=== PATIENT | male | born 1960 | race Caucasian/White ===

== ENCOUNTER 2017-02-04 11:54 | Day surgery (SDC) | payer BC ==
[~2017-02-04 11:54] MED LIST: Lactated Ringers 1,000 ML IV SCH; Midazolam 1 MG/ML 2 ML SDV ONE; Propofol 200 MG/20 ML SDV ONE; fentaNYL 100 MCG/2 ML SDV ONE
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
[2017-02-04] MEDS ORDERED: Lactated Ringers 1,000 ML IV SCH (14:45)
--- NOTE | 2017-02-04 14:45 | PCM.OPNOTE ---
- General Post-Op/Procedure Note Date of Surgery/Procedure: 02/04/17 Operative Procedure(s): Colonoscopy with cold rectal polypectomy Pre Op Diagnosis: Family history of colon cancer. Family history of colon polyps. Desire for colorectal cancer screening. Post-Op Diagnosis: Rectal polyp Anesthesia Technique: MAC (ASA I) Primary Surgeon: Jose Otero Condition: Good Free Text/Narrative:: Dictation [id number]
--- NOTE | 2017-02-04 14:58 | PCM.POSTAN ---
POST ANESTHESIA ASSESSMENT - MENTAL STATUS Mental Status: alert, oriented - RESPIRATORY Respiratory Status: respiratory rate WNL, airway patent, O2 saturation stable - CARDIOVASCULAR CV Status: pulse rate WNL, blood pressure stable - GASTROINTESTINAL GI Status: no symptoms - POST OP HYDRATION Hydration Status: adequate & stable - OBSERVATIONS Free Text/Narrative:: no anesthesia problems
--- NOTE | 2017-02-04 15:02 | OR ---
SURGEON: Jose Otero M.D. DATE OF PROCEDURE: 02/04/2017 OPERATION PERFORMED: Colonoscopy with cold rectal polypectomy. ANESTHESIA: MAC. ASA CLASSIFICATION: II PREOPERATIVE DIAGNOSES: 1. Family history of colon cancer. 2. Family history of colon polyps. 3. Desire for colorectal cancer screening. DESCRIPTION OF PROCEDURE: The patient was taken to the endoscopy room and positioned on the endoscopy table in the left lateral decubitus position. Time-out was called for appropriate identification of the patient and procedure. Monitored anesthesia care was provided. The colonoscope was inserted into the rectum and advanced with moderate difficulty to the cecum where the colonoscope was retroflexed to visualize the ascending colon from below. The colonoscope was then straightened and slowly withdrawn. The cecum, ascending colon, hepatic flexure, transverse colon, splenic flexure, descending colon, and sigmoid colon showed no tumors, polyps, diverticula, or angiodysplastic changes. One small polyp was encountered in the rectum and removed with multiple bites of the cold biopsy forceps. The colonoscope was retroflexed to visualize the anal orifice from above. No other tumors or polyps were seen and there were no acute hemorrhoidal changes. The colonoscope was then straightened, the rectum aspirated, and the colonoscope removed. The patient tolerated the procedure well and was taken to recovery room in stable condition. [facility] /[id number]
[2017-02-04 15:24] VITALS: BP 121/83
== END 2017-02-04 15:28 | disposition home or self-care (01) ==
LOC: MW.SDS 11:54
PROVIDERS: ATTEND Surgery
PROC: 0DBP8ZZ Excision of Rectum, Via Natural or Artificial Opening Endoscopic (ICD-10-PCS; principal; 2017-02-04)
DX: Z12.11 Encounter for screening for malignant neoplasm of colon (principal); D12.8 Benign neoplasm of rectum; Z80.0 Family history of malignant neoplasm of digestive organs; Z79.82 Long term (current) use of aspirin; Z79.899 Other long term (current) drug therapy; Z98.890 Other specified postprocedural states
CPT/HCPCS: 45380; J2250; J3010; 88305; J2704

== ENCOUNTER 2021-10-02 07:39 | Day surgery (SDC) | payer OTHER ==
[2021-10-02] MEDS ORDERED: Propofol 200 MG/20 ML SDV ONE ×2 (08:56→09:18)
[2021-10-02] MEDS ORDERED: Glycopyrrolate 0.2 MG/ML SDV ONE ×2 (09:10→09:12)
[2021-10-02] MEDS ORDERED: Lactated Ringers 1,000 ML IV SCH (09:30)
[2021-10-02 10:00] VITALS: BP 114/78; PULSE 67
== END 2021-10-02 10:20 | disposition home or self-care (01) ==
LOC: MW.SDS 07:39
PROVIDERS: ATTEND Surgery
DX: Z12.11 Encounter for screening for malignant neoplasm of colon (principal); K64.9 Unspecified hemorrhoids; K57.30 Diverticulosis of large intestine without perforation or abscess without bleeding; Z86.010 Personal history of colon polyps; Z83.71 Family history of colonic polyps; Z98.890 Other specified postprocedural states; Z87.891 Personal history of nicotine dependence
CPT/HCPCS: 45378; J2250; J2704; J3010; J3490; J7120